=== PATIENT | female | born 1950 | race Caucasian/White ===

== ENCOUNTER 2016-06-13 08:18 | Day surgery (SDC) | payer MEDICARE ==
[~2016-06-13] VITALS: Ht 162.6 cm; Wt 40.1 kg
[~2016-06-13 08:18] MED LIST: ASPI81CH CHEW; LISI-519 PO
[2016-06-13 09:14] VITALS: BP 146/76; PULSE 88; RESP 20; TEMP 97.5; O2SAT 98
--- NOTE | 2016-06-13 09:46 | RADRPT ---
EXAM DATE/TIME: 06/13/2016 08:59 [facility] COMPARISON: No previous studies available for comparison. INDICATIONS : Evaluate for pneumonia, pneumothorax, or communicable disease. Pre op for cervical spine surgery. MEDICAL HISTORY : None. SURGICAL HISTORY : Cervical fusion. ENCOUNTER: Initial ACUITY: 1 day PAIN SCORE: 0/10 LOCATION: Bilateral chest FINDINGS: A single view of the chest demonstrates the lungs to be symmetrically aerated without evidence of mas s, infiltrate or effusion. There is bilateral hyperaeration of the lung becker. There is some mild as ymmetric pleural thickening in the apices, right greater than left. There are no prior studies for co mparison. The cardiomediastinal contours are unremarkable. Osseous structures are intact. There is evidence of previous anterior cervical fusion. CONCLUSION: 1. No acute intrathoracic disease. 2. Mild asymmetric pleural thickening in the apices, right greater than left. If patient has prior ch est x-rays they would be helpful for comparison. Otherwise, a noncontrast CT thorax on a nonemergent outpatient basis could be performed for further evaluation. Ish Ureña MD on June 13, 2016 at 9:42 Board Certified Radiologist. This report was verified electronically.
[2016-06-13 09:49] LABS: AUTOMATED NEUTROPHIL # 4.3 TH/MM3 (1.8-7.7); BASOPHIL % 0.6 % (0.0-2.0); EOSINOPHIL # 0.2 TH/MM3 (0-0.4); HEMATOCRIT 40.5 % (35.0-46.0); HEMO FLAGS DIFF FINAL; LYMPH % 23.8 % (9.0-44.0); LYMPHOCYTE # 1.6 TH/MM3 (1.0-4.8); MEAN CELL VOLUME 92.2 FL (80.0-100.0); MEAN CORPUSCULAR HEMOGLOBIN 31.5 PG (27.0-34.0); MEAN CORPUSCULAR HGB CONC 34.2 % (32.0-36.0); MONO % 8.2 % (0.0-8.0); NEUT % 64.4 % (16.0-70.0); PLATELET COUNT 236 TH/MM3 (150-450); RED BLOOD COUNT 4.39 MIL/MM3 (4.00-5.30); RED CELL DISTRIBUTION WIDTH 12.3 % (11.6-17.2); WHITE BLOOD COUNT 6.6 TH/MM3 (4.0-11.0)
[2016-06-13 09:53] LABS: BACTERIA, URINE MANY /hpf; BLOOD, URINE NEG (NEG); GLUCOSE,URINE NEG (NEG); KETONE, URINE NEG (NEG); MUCUS URINE FEW /lpf (OCC); SQUAMOUS EPITHELIAL CELL URINE <1 /hpf (0-5); URINE COLOR LIGHT-YELLOW (YELLW/STRAW)
[2016-06-13 09:54] LABS: COMMENT (UR) CULTURE INDICATED; CULTURE IF INDICATED CULTURE INDICATED; NITRITE,URINE POS (NEG)
[2016-06-13 09:55] LABS: PROTHROMBIN TIME - PATIENT 10.7 SEC (9.8-11.6)
[2016-06-13 10:09] LABS: ALKALINE PHOSPHATASE 92 U/L (45-117); ALT (GPT) 18 U/L (10-53); ANION GAP 7 MEQ/L (5-15); AST (GOT) 19 U/L (15-37); BICARBONATE 26.9 MEQ/L (21.0-32.0); BLOOD UREA NITROGEN 13 MG/DL (7-18); CHLORIDE 103 MEQ/L (98-107); GLOMERULAR FILTRATION RATE 87 ML/MIN (>89); SODIUM (NA) 137 MEQ/L (136-145); TOTAL BILIRUBIN ADULT 0.3 MG/DL (0.2-1.0)
[2016-06-13] MEDS ORDERED: BACT800T5 PO (12:09)
--- NOTE | 2016-06-13 19:35 | EKG ---
Date Performed: 06/13/2016 Time Performed: 09:42:30 PTAGE: 66 years EKG: Sinus rhythm NORMAL ECG NO PREVIOUS TRACING DOCTOR: Titi Neville Interpretating Date/Time 06/13/2016 19:34:23
[2016-06-20] MEDS ORDERED: IBUP800T23 PO (10:17)
== END 2016-06-13 12:42 | disposition home or self-care (01) ==
LOC: HOR 08:18 → EDSTATUS 10:30 → HOR 12:42 → EDUNIT# 06-20 08:00
PROVIDERS: ATTEND Neurological Surgery
DX: M54.9 Dorsalgia, unspecified (principal); Z53.8 Procedure and treatment not carried out for other reasons; N39.0 Urinary tract infection, site not specified; B96.20 Unspecified Escherichia coli [E. coli] as the cause of diseases classified elsewhere; Z01.810 Encounter for preprocedural cardiovascular examination
CPT/HCPCS: 71010; 80053; 81001; 85025; 85610; 85730; 87077; 87086; 87186; 93005; 99211; G0463

== ENCOUNTER → 2016-06-25 | Outpatient (CLI) | payer MEDICARE ==
[~2016-06-25] MED LIST changes: +BACT800T5 PO; +HYDR-3583 PO; +IBUP800T23 PO; +LISI10TA3 PO
[2016-06-25 12:52] LABS: BLOOD, URINE NEG (NEG); GLUCOSE,URINE NEG (NEG); HYALINE CAST, URINE 7 /lpf (RARE); KETONE, URINE NEG (NEG); MUCUS URINE FEW /lpf (OCC); NITRITE,URINE NEG (NEG); PH, URINE 5.5 (5.0-8.5); SQUAMOUS EPITHELIAL CELL URINE 1 /hpf (0-5); URINE COLOR YELLOW (YELLW/STRAW)
[2016-06-25 12:53] LABS: COMMENT (UR) CULT NOT INDICATED; CULTURE IF INDICATED CULT NOT INDICATED; URIC ACID CRYSTALS, URINE MANY /hpf
== END ==
LOC: CLAB 10:59
PROVIDERS: ATTEND Physician Assistant Medical
DX: N39.0 Urinary tract infection, site not specified (principal)
CPT/HCPCS: 81001

== ENCOUNTER 2016-06-26 05:48 | Observation (INO) | payer MEDICARE ==
[~2016-06-26] VITALS: Ht 162.6 cm; Wt 37.8 kg
[~2016-06-26 05:48] MED LIST changes: -HYDR-3583 PO; -LISI10TA3 PO
[2016-06-26] MEDS ORDERED: LISI10TA3 PO (06:28)
[2016-06-26 06:36] VITALS: BP 106/62; PULSE 77; RESP 16; TEMP 98.1; O2SAT 99
[2016-06-26] MEDS ORDERED: VANCOMYCIN HCL 1000 MG VIAL ONE (07:13)
[2016-06-26] MEDS ORDERED: THROMBIN (TOPICAL) 5,000 UNIT VIAL ONE (07:13)
[2016-06-26] MEDS ORDERED: MICROFIBRILLAR COLLAGEN HEMOSTAT 70 X 35 MM BANDAGE ONE (07:13)
[2016-06-26] MEDS ORDERED: ceFAZolin 2 GM PREMIX 50 ML ONE (07:14)
[2016-06-26] MEDS ORDERED: GELFOAM SIZE 100 ONE (07:14)
[2016-06-26] MEDS ORDERED: SODIUM CHLOR 0.9% 250 ML INJ 250 ML ONE (07:15)
[2016-06-26] MEDS ORDERED: GENTAMICIN SULFATE 80 MG/2 ML VIAL ONE (07:15)
[2016-06-26] MEDS ORDERED: LACTATED RINGER'S 1000 ML INJ 1,000 ML ONE (07:31)
[2016-06-26] MEDS ORDERED: FAMOTIDINE 20 MG/2 ML VIAL ONE (07:49)
[2016-06-26] MEDS ORDERED: ARTIFICIAL TEARS OPTH OINT 3.5 APPLIC/3.5 GM TUBO ONE (07:49)
[2016-06-26] MEDS ORDERED: ACETAMINOPHEN 1000 MG/100 ML VIAL IV ONE (07:49)
[2016-06-26] MEDS ORDERED: MIDAZOLAM HCL 2 MG/2 ML VIAL ONE (07:50)
[2016-06-26] MEDS ORDERED: fentaNYL CITRATE 250 MCG/5 ML AMP ONE (07:50)
[2016-06-26] MEDS ORDERED: NEOSTIGMINE 3 MG/3 ML SYR IV ONE (12:00)
[2016-06-26] MEDS ORDERED: NORMOSOL R INJ 1,000 ML IV ONE (12:00)
[2016-06-26] MEDS ORDERED: LACTATED RINGER'S 1000 ML INJ 1,000 ML IV ONE (12:00)
[2016-06-26] MEDS ORDERED: ONDANSETRON HCL 4 MG/2 ML VIAL IV PUSH ONE (12:00)
[2016-06-26] MEDS ORDERED: PROPOFOL 200 MG/20 ML AMP IV ONE (12:00)
[2016-06-26] MEDS ORDERED: DO NOT ADM ANY ANTICOAGULANT DRUGS XX PRN (12:45)
[2016-06-26] MEDS: NS + KCL 20 MEQ INJ 1,000 ML IV SCH (13:08)
[2016-06-26] MEDS ORDERED: SODIUM CHLORIDE 0.9% FLUSH 5 ML FLUSH IVF PRN (13:15)
[2016-06-26] MEDS ORDERED: ONDANSETRON HCL 4 MG/2 ML VIAL IV PRN (13:15)
[2016-06-26] MEDS ORDERED: ACETAMINOPHEN/HYDROcodone 325 MG/10 MG TAB PO PRN ×2 (13:15)
[2016-06-26] MEDS ORDERED: CYCLOBENZAPRINE HCL 10 MG TAB PO PRN (13:15)
[2016-06-26] MEDS ORDERED: MORPHINE SULFATE 4 MG/ML INJ IV PUSH PRN ×2 (13:15)
[2016-06-26] MEDS ORDERED: BISACODYL 10 MG SUPP PR PRN (13:15)
[2016-06-26] MEDS ORDERED: ACETAMINOPHEN 325 MG TAB PO PRN (13:15)
--- NOTE | 2016-06-26 13:19 | RADRPT ---
EXAM DATE/TIME: 06/26/2016 08:57 [facility] COMPARISON: No previous studies available for comparison. INDICATIONS : Stenosis, anterior cervical fusion. MEDICAL HISTORY : ACDF SURGICAL HISTORY : ACDF ENCOUNTER: Initial ACUITY: 1 day PAIN SCORE: Non-responsive. LOCATION: Cervical spine FINDINGS & CONCLUSION: Two-view cervical spine demonstrates the patient has had anterior cervical fusion from C4 to C6 with overall excellent alignment. No complications are seen. Jonnathan Conklin MD on June 26, 2016 at 13:17 Board Certified Radiologist. This report was verified electronically.
[2016-06-26] MEDS ORDERED: HYDR-3583 PO (13:45)
--- NOTE | 2016-06-26 13:51 | PD.OP ---
Operative Report Date of Surgery: Jun 26, 2016 Preoperative Diagnosis: cervical spinal stenosis Postoperative Diagnosis: cervical spinal stenosis Procedure: C5-6, C6-7 anterior cervical discectomy, interbody arthodhesis using PEEK cage filled with autologous bone graft, Simplicity plate and screws. Anesthesia: general Surgeon: Josef Villalobos Ekg Monitor Tech(s): January Wells Operation and Findings: INDICATIONS FOR THE PROCEDURE Ms Prado is a 66 year-old female who presented with intractable neck pain and clinical evidence of C5 and C6 upper extremity radiculopathy. She was found to have significant spndylosis with stenosis. She has failed maximum nonsurgical management including multiple modalities of conservative treatment as well as pain management interventions by an interventional pain specialist. A surgical decompression and arthrodhesis were indicated. The [id number] details of the procedure, indications, alternatives, risks and potential complications were fully discussed with the patient. The patient fully understood. All The questions were answered. No guarantees were given. The patient voiced requesting the procedure and provided informed consents. The patient was offered the alternative of delaying the procedure and continuing with nonsurgical management. DETAILS OF THE SURGICAL PROCEDURE After the induction of general anesthesia, endotracheal intubation was performed. A Brunner catheter, bilateral JOSE hose, and sequential compression devices were placed and kept throughout the procedure. Placement of electrodes for neurophysiological monitoring of the somatosensorial evoked potentials. motor evoked potentials, and EMG as well as laryngeal nerve monitoring was achieved. The patient was positioned supine on a Rocco table with the head over a gel doughnut. All pressure points were carefully padded with eggcrate mattress. The eyes were tapped shut after ointment was applied by the anesthesiologist to prevent corneal abrasion. A Israel hugger was placed over the exposed lower body to maintain control of the core body temperature. The electrophysiological team placed the needles and electrodes in their proper location and baseline SSEP's and motor evoked potentials were registered prior and after positioning and endotracheal intubation. The anterior cervical region was prepped and draped in the usual sterile fashion. A localizing x-ray was performed with a C-arm. The surgical procedure was performed in several steps as follow: SURGICAL APPROACH A skin incision was made along the medial cervical crease with a #10 blade. The dissection was carried out through the platysma exposing the sternocleidomastoid muscle. The cervical spine was approached following the fascial layers of the neck just medial to the anterior border of the sternocleidomastoid and carotid sheath by a combination of sharp and dull dissection. The tissues were abnormal and scarred, related to the previous surgery. The omohyoid muscle was identified and carefully dissected laterally and the deep cervical fascia was carefully opened. The longus colli muscles were retracted to each side of the midline. The plate at C6-C7 was exposed. Initially the locking screws were sequentially removed, and then the set screws were removed. The plate was dissected from the surrounding tissues and carefully elevated with a ligament dissector. A marker was placed at the disc space C5-6 and a cross-table lateral x-ray performed with a C-arm. SURGICAL DECOMPRESSION In order to decompress the anterior surface of the spinal cord it was necessary to preform a microsurgical resection of the disk at C4-5 and C5-6. At this point in the procedure the operating microscope was draped in the usual sterile fashion and brought to the field. The rest of the surgical procedure was performed using microdissection technique with the exception of the closure. Under the operative microscopic, a self-retaining retractor was placed underneath the longus colli muscle. Anterior osteophite spurs werte carefully removed with the [place]. The annulus at C4-5 and C5-6 were incised with a #15 blade and microdiscectomy was then carefully carried out using angled curets and pituitary forceps. There were osteophitic/disk complexes mass effect and compression of the dural sac and nerve roots. The posterior longitudinal ligament was then elevated with an angled curet and incised with a 15 bladed knife. A careful resection of the posterior longitudinal ligament was carried out using a thin footplate 2 mm Kerrison. A nerve hook was used to assess the epidural space behing the vertebral bodies C5 and C6 in search for residual disk fragments. The margins of the posterior endplates at C4-5 and C5-6 were carefully drilled and undercut with a TPS drill under high magnification. The decompression was then carried out laterally, and a bilateral foraminotomy was performed with a 2mm thin foot Kerrison. Then the vertebral bodies above and below the disk space were undercut using a 2 mm thin foot Kerrison. The epidural space was the systematically assessed with a nerve hook in search for disk fragments or scar tissue. An excellent decompression was achieved in both , the dural sac and bilateral exiting nerve roots. The incision was then irrigated with a large amount of antibiotic solution INTERBODY ARTHRODHESIS In order to avoid collapse of the disk space which would result in bilateral foraminal stenosis, and to increase the chances of a successful fusion, it was necessary to place an interbody cage filled with autologous bone. At this point of the procedure, the superior and inferior endplates were then evenly decorticated with a TPS drill. The use of a drill in combination with a curette allowed me to systematically remove the cartilaginous endplates, exposing healthy bone for the interbody arthrodesis. Fourteen millimeters distraction pins were then placed at the vertebral bodies adjacent to the disk space, and gentle distraction was applied. The size of the interbody cage was then assessed using different size spacers, and a rasp was used to ensure no residual cartilage. A PEEK cage of the appropriate size was selected, and the interbody arthrodesis was then preformed by carefully impacting a PEEK cage filled with autologous bone graft to the disc spaces C4-5 and C5-6. An excellent position of the cage was achieved. This was was confirmed anatomically by feeling the space posterior to the implant and distance to the anterior surface of the dural sac. Radiological confirmation of the position was performed with a cross lateral xray performed with the C-arm. INTERNAL INSTRUMENTAL FIXATION Once that the interbody device was in an appropriate position, it was necessary to stabilize the spine with anterior instrumentation. Anterior instrumentation has demonstrated to increase the rate of fusion, acelerate the patient's recovery, and decrease the rate of failed interbody grafts. At this point of the procedure, the distance between the vertebral bodies was carefully measures, and a Simplicity plate was brought to the field and presented in front of the vertebral bodies C4 C5 and C6. Certified Nurse holes were then drilled using the TPS drill, and the plate was then secured to the spine using self-drilling, self-tapping screws. Initially, the inferior right screw was inserted, followed by placement of the contralateral upper screw. The remanding screws were sequentially placed in a contra-lateral fashion. A proper purchase was achieved with all screws and the position of the cage, plate and screws, and alignment of the spine was assessed anatomically by direct visualization, and radiologically by performing a cross lateral xray of the cervical spine with the C-arm. CLOSURE The incision was irrigated with several liters of antibiotic solution. Hemostasis was achieved with a bipolar. The screws were locked to prevent backing out. A 7 mm Rocco-York drain was left in the prevertebral space and externalized through a separate stab incision. The incision was then closed in layers. 3-0 Vicryl with interrupted sutures was used to close the platysma and subcutaneous tissue. The skin was closed with 4-0 running subcuticular Vicryl and glue was applied to the skin. The drain was secured with a 3-0 nylon. At the end of the procedure the sponge, needle and instrument counts were all correct. The estimated blood loss was less than 80 cc. No blood transfusion was given. No intraoperative complications occurred. The patient received prophylactic antibiotics. The patient was then extubated and transferred to the recovery room in stable condition. Josef Villalobos MD Jun 26, 2016 13:51
[2016-06-26] MEDS: DEXAMETHASONE SOD PHOS 4 MG/ML VIAL IV SCH ×2 (14:30→20:04)
[2016-06-26 16:12] VITALS: BP 129/66; PULSE 92; RESP 18; TEMP 95.9; O2SAT 100
[2016-06-26] MEDS: ceFAZolin 2 GM PREMIX 50 ML IV SCH (17:30)
[2016-06-26] MEDS: MENTHOL LOZENGE SUCK-ON PRN (20:04)
[2016-06-26] MEDS: SULFAMETHOXAZOLE-TRIMETHOPRIM DS 800-160 MG TAB PO SCH (20:05)
[2016-06-26] MEDS: DOCUSATE SODIUM 100 MG CAP PO SCH (20:05)
[2016-06-26] MEDS: SODIUM CHLORIDE 0.9% FLUSH 5 ML FLUSH IVF SCH (20:05)
[2016-06-26 20:10] VITALS: BP 134/67; PULSE 89; RESP 17; TEMP 96; O2SAT 97
[2016-06-27 00:14] VITALS: BP 109/59; PULSE 96; RESP 17; TEMP 97.2; O2SAT 97
[2016-06-27] MEDS: ceFAZolin 2 GM PREMIX 50 ML IV SCH ×2 (01:56→08:54)
[2016-06-27] MEDS: DEXAMETHASONE SOD PHOS 4 MG/ML VIAL IV SCH ×2 (01:56→08:55)
[2016-06-27] MEDS: NS + KCL 20 MEQ INJ 1,000 ML IV SCH (03:26)
[2016-06-27 04:10] VITALS: BP 123/65; PULSE 85; RESP 16; TEMP 96; O2SAT 96
[2016-06-27 08:00] VITALS: BP 142/76; PULSE 92; RESP 16; TEMP 95.8; O2SAT 99
[2016-06-27] MEDS: SULFAMETHOXAZOLE-TRIMETHOPRIM DS 800-160 MG TAB PO SCH (08:55)
[2016-06-27] MEDS: DOCUSATE SODIUM 100 MG CAP PO SCH (08:55)
[2016-06-27] MEDS: MENTHOL LOZENGE SUCK-ON PRN (08:56)
[2016-06-27] MEDS: SODIUM CHLORIDE 0.9% FLUSH 5 ML FLUSH IVF SCH (08:57)
[2016-06-27] MEDS ORDERED: LISINOPRIL 5 MG TAB PO SCH (09:00)
[2016-06-27] MEDS ORDERED: PANTOPRAZOLE SOD 40 MG DELAYED RELEASE TAB PO SCH (09:00)
[2016-06-27 10:15] VITALS: O2SAT 98
--- NOTE | 2016-06-27 10:37 | HHI.DCPOC ---
Discharge Care Plan Diagnosis: (1) Status post cervical arthrodesis Goals to Promote Your Health * To prevent worsening of your condition and complications * To maintain your health at the optimal level Directions to Meet Your Goals Take your medications as prescribed Follow your dietary instruction Follow activity as directed Keep your appointments as scheduled Take your immunizations and boosters as scheduled If your symptoms worsen call your PCP, if no PCP go to Urgent Care Center or Emergency Room Smoking is Dangerous to Your Health. Avoid second hand smoke Call the 24-hour hour crisis hotline for domestic abuse at Elvia Felipe Jun 27, 2016 10:37
--- NOTE | 2016-06-27 10:38 | HHI.DS ---
Discharge Summary Admission Date Jun 26, 2016 at 15:52 Discharge Date: Jun 27, 2016 Admitting Diagnosis s/p ACDF (1) Status post cervical arthrodesis ICD Code: Z98.1 Brief History Ms Prado is a 66 year-old female who presented with intractable neck pain and clinical evidence of C5 and C6 upper extremity radiculopathy. She was found to have significant spondylosis with stenosis. She has failed maximum nonsurgical management including multiple modalities of conservative treatment as well as pain management interventions by an interventional pain specialist. A surgical decompression and arthrodesis were indicated. Imaging Last Impressions Cervical Spine X-Ray 06/26/16 0000 Signed Impressions: Service Date/Time: Sunday, June 26, 2016 08:57 - CONCLUSION: Two-view cervical spine demonstrates the patient has had anterior cervical fusion from C4 to C6 with overall excellent alignment. No complications are seen. Jonnathan Conklin MD PE at Discharge Ms. Prado is alert, in no apparent distress. Speech is fluent. Mentation intact. Incision is clean and dry, with dressing in place. Cranial nerve examination: pupils to be equal, round and reactive to light. Extra-ocular movements are intact. Facial motor are normal and symmetrical. Gross hearing appears intact. Neck is immobilized by a [place] J collar. Muscle strength is 5/5 to both deltoid, biceps, triceps, and ore miner in the upper extremities. 5/5 to both iliopsoas, quadriceps, hamstrings, plantarflexion and dorsiflexion in lower extremities. Sensory examination is intact to light touch in both the upper and lower extremities. Acosta's negative b/l Gait: good length of stride and width of stance, ambulated unassisted Hospital Course Ms. Prado underwent a C5-6, C6-7 anterior cervical discectomy, interbody arthrodesis using PEEK cage filled with autologous bone graft, Simplicity plate and screws on Jun 26, 2016. Her surgery went well without complications. Her radicular pain has improved. She has residual paresthesias in her fingers. Her JANETH drain will be removed. She leaves the hospital in stable conditions. Pt Condition on Discharge: Stable Discharge Disposition: Discharge Home Discharge Instructions DIET: Follow Instructions for: Heart Healthy Diet ADDITIONAL Diet Instructions: soft and advance as tolerated ACTIVITIES You can perform: Weight Bearing As Mer ADDITIONAL Activity Instructio: Avoid strenuous activities, heavy lifting, bending, overhead, pushing, pulling or any other activities that will place stress on the spine. Wear neck collar at all times, may remove only when eating. New Medications: Hydrocodone-Acetaminophen (Hydrocodone-Acetaminophen) 10-325 mg Tab 1 TAB PO Q8HR PRN PAIN SCALE 1 TO 5 #62 Ref 0 TAB Continued Medications: Aspirin (Aspirin) 81 Mg Chew 81 MG CHEW DAILY Ref 0 TAB Ibuprofen (Ibuprofen) 800 Mg Tab 800 MG PO Q8H PRN pain #21 Ref 0 TAB Lisinopril (Lisinopril) 10 Mg Tab 5 MG PO DAILY #30 Ref 0 TAB Discontinued Medications: Sulfamethoxazole-Trimethoprim (Bactrim DS) 800-160 Mg Tab 1 TAB PO BID Infection #20 Ref 0 TAB Elvia Felipe Jun 27, 2016 10:38
[2016-06-27 12:00] VITALS: BP 134/69; PULSE 89; RESP 17; TEMP 95.8; O2SAT 95
== END 2016-06-27 14:17 | disposition home or self-care (01) ==
LOC: HSDC 05:48 → N06B 15:52
PROVIDERS: ADMIT Neurological Surgery; ATTEND Neurological Surgery
DX: M48.02 Spinal stenosis, cervical region (principal); M50.021 Cervical disc disorder at C4-C5 level with myelopathy; M50.022 Cervical disc disorder at C5-C6 level with myelopathy; M54.2 Cervicalgia
CPT/HCPCS: 00600; 20937; 22551; 22552; 22845; 22854; 72020; 76000; 94150; 97162; C1713; G0378; J0131; J0690; J1100; J1580; J2250; J2405; J2710; J3010; J3370; J3480; J7050; J7120; L0150; L0172; G8987-GP; G8988-GP